=== PATIENT | male | born 1935 | race Caucasian/White ===

== ENCOUNTER → 2019-02-07 | Outpatient (CLI) | payer OTHER ==
[~2019-02-07] VITALS: Ht 188 cm; Wt 98.0 kg
[~2019-02-07] MED LIST: ADVAIR 250-501 EACH IH; ALBUTEROL2.5 MG/0.1 INH; ALLEGRA180 MG PO; ALLOPURINOL 10100 M3 PO; ASPIR 8181 MG PO; ASPIRIN325 PO; CARDIZEM CD240 MG PO; DEMADEX20 MG PO; DICLOFENAC SODI75 MG PO; ELIQUIS5 MG PO; FISH OIL 1,0001 EAC5 PO; GLUCOSAMINE SU500 MG PO; LISINOPRIL5 MG PO; LOVASTAT40 PO; LOVASTATIN 20 M20 MG PO; MULTIVITAMINS PO; POTASSIUM20 PO; PROTONIX40 M2 PO; SIMVASTATIN40 MG PO; SYNTHROID200 MCG PO; TRIAMCINOLONE A80 G2 TOP; VITAMIN D325 MC5 PO
--- NOTE | 2019-02-07 17:09 | P ---
[facility] [place] [address] PROCEDURE REPORT Name: THEODORA RUBIO Room #: REG JACOB Matute.#: [id number] Admission: 02/07/19 Attend Phys: Randell Mane MD Discharge: Date of : 35 Report #: [id number] THIS REPORT FOR: //name// CC: Randell Hsu MD DATE OF SERVICE: 02/07/2019 BRIEF HISTORY: The patient is an 84-year-old male with recent findings of anemia. He also has had epigastric pain, which has been vague. In addition, he uses diclofenac. PREOPERATIVE DIAGNOSES: Anemia and abdominal pain. POSTOPERATIVE DIAGNOSES: 1. Small hiatus hernia. 2. Mid esophageal diverticulum. 3. 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 ESTIMATED BLOOD LOSS: 3 mL. PROCEDURE: EGD with biopsy. FINDINGS: Prior to propofol sedation, procedure of upper endoscopy discussed with the patient as well as potential risks and its complications. He indicates he understands and desires to proceed. DESCRIPTION OF PROCEDURE: With the patient in left lateral decubitus position, the Olympus video endoscope was inserted in the cervical esophagus under direct vision without difficulty. Examination of this organ through its entire length revealed normal esophageal mucosa down in the distal esophagus. Examination of the distal esophagus revealed intact mucosa. However, there was evidence of Reed's mucosa with 3 broad tongues of Reed's mucosa extending 3-4 cm in the distal esophagus. The mucosa was flat. It was examined on end view as well as retroflexed views. No mass lesions were seen. Biopsies were obtained. The scope was further advanced and a small 2 cm sliding type hiatus hernia was seen. The mucosa and hernia was unremarkable. The scope was advanced fully into the stomach, was examined on end view as well as retroflexed views. The mucosa was intact. No ulcers or erosions were seen. The pylorus was unremarkable. Duodenal bulb was unremarkable. Due to history of anemia, multiple small bowel biopsies obtained to evaluate for celiac disease. At that point, the scope was slowly withdrawn and careful circumferential views were obtained. In addition, upon withdrawal of the scope, mid esophageal diverticulum was seen. It was noted to be unremarkable without inflammatory changes. Scope was withdrawn. The patient tolerated the procedure well. [address] [address] PROCEDURE REPORT Name: THEODORA RUBIO Room #: REG JACOB Solorzano#: [id number] Admission: 02/07/19 Attend Phys: Randell Mane MD Discharge: Date of : 35 Report #: [id number] CONDITION OF THE PATIENT UPON DISCHARGE: Following procedure, the patient was drowsy, arousable, conversant and will be discharged home when fully ambulatory. INSTRUCTIONS TO THE PATIENT AND FAMILY AT THE TIME OF DISCHARGE: An ulcer or bleeding lesion was not seen. 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 His symptoms may be related to reflux. We will have him start pantoprazole 20 mg daily. We will follow up on biopsies and make further recommendations. If he does have Reed's, I suggest followup endoscopy and biopsy in 4-6 months. We will proceed with colonoscopy at this time. <ELECTRONICALLY SIGNED> By: Randell Mane MD 02/07/19 1709 [id number] 1055 Randell Mane MD /nt
--- NOTE | 2019-02-07 17:09 | P ---
[facility] [place] [address] PROCEDURE REPORT Name: THEODROA RUBIO [facility]: [id number] Admission: 02/07/19 Attend Phys: Randell Mane MD Discharge: Date of : 35 Report #: [id number] THIS REPORT FOR: //name// CC: Randell Hsu MD DATE OF SERVICE: 02/07/2019 BRIEF HISTORY: The patient is an 84-year-old male recently was found to have microcytic anemia. PREOPERATIVE DIAGNOSIS: Microcytic anemia. POSTOPERATIVE DIAGNOSES: 1. Colon polyps. 2. Moderate sigmoid diverticulosis coli with few scattered proximal colon diverticula. 3. Moderate internal hemorrhoids. MEDICATIONS: Deep sedation with propofol per anesthesia. SPECIMENS: 1. Diminutive polyp, proximal ascending colon. 2. A 4-5 mm flat polyp, 25 cm. ESTIMATED BLOOD LOSS: 3 mL. PROCEDURE: Colonoscopy to cecum and terminal ileum with snare polypectomy and biopsy. FINDINGS: Prior to propofol sedation, procedure of colonoscopy discussed with the patient as well as potential risks and its complications. He indicates he understands and desires to proceed. DESCRIPTION OF PROCEDURE: With the patient in left lateral decubitus position, digital examination was completed, which revealed no abnormalities. Subsequently, the Olympus video colonoscope was introduced and was advanced under direct vision to the cecum. Done with minimal difficulty. The cecum was identified by the ileocecal valve and the appendiceal orifice. I was able to visualize the distal segment of the terminal ileum, which was inspected and noted to be unremarkable. At that point, the scope was slowly withdrawn and careful circumferential views were obtained. Upon slow withdrawal of the scope, the prep was noted to be excellent. The mucosa was within normal limits, normal vascular pattern, normal light reflex. As we withdrew the scope, a diminutive polyp was seen in the proximal ascending colon, removed with biopsy forceps. An [facility] [address] [place] [address] PROCEDURE REPORT Name: THEODORA RUBIO Room #: REG [facility].#: [id number] Admission: 02/07/19 Attend Phys: Randell Mane MD Discharge: Date of : 35 Report #: [id number] occasional diverticulum was seen in the proximal colon, but no other abnormalities were noted until the left colon was reached and he was noted to have moderately severe diverticular disease of the sigmoid colon without endoscopic evidence of diverticulitis. In addition, 25 cm in the sigmoid colon, a flat 4-5 mm polyp was seen and removed by cold snare polypectomy and recovered. Scope was further withdrawn and no additional neoplastic lesions were seen. Scope was withdrawn in the rectum, no abnormalities were noted until upon retroflexion, moderate internal hemorrhoids were seen. Scope was withdrawn. The patient tolerated the procedure well. CONDITION OF THE PATIENT UPON DISCHARGE: Following procedure, the patient drowsy, arousable and conversant and will be discharged home when fully ambulatory. INSTRUCTIONS TO THE PATIENT AND FAMILY AT THE TIME OF DISCHARGE: We will follow up on the pathology of the polyps. However, if these are both adenomas, typical recommendation is return in 5 years. At this point in life, there is likely be of limited benefit from routine colonoscopy in 5 years. However, some problems should arise, colonoscopy could be undertaken for those reasons at that time. Routine followup colonoscopy at this point is likely be of minimal benefit. This is the patient's first colonoscopy. Withdrawal time from the cecum was 15 minutes 8 seconds. <ELECTRONICALLY SIGNED> By: Randell Mane MD 02/07/19 1709 1013 1123 Randell Mane MD /nt
--- NOTE | 2019-02-08 12:08 | PATH ---
[facility] [place] [address] [address] [place] [address] PATHOLOGY RPT PROCEDURE Name: QUINCY RUBIO Room #: REG JACOB Matute.#: [id number] Admission: 02/07/19 Date of : 35 Discharge: Report #: [id number] Path Case #: [id number] [facility] Accession Number: [id number] . 01 Material submitted: . PART A: small bowel - BIOPSY OF SMALL BOWEL TO R/O CELIAC IN REGARDS TO ANEMIA PART B: stomach - GASTRIC BIOPSY TO R/O H. PYLORI PART C: esophagus - BIOPSY OF DISTAL ESOPHAGUS TO R/O MERCEDES. Modifiers: distal PART D: colon - POLYP AT PROXIMAL ASCENDING COLON. Modifiers: proximal, ascending PART E: colon - POLYP AT 25CM . 01 Clinical history: . . Anemia and abdominal pain Hiatus hernia, mid esophageal diverticulum, possible Mercedes's, colon polyps, diverticulosis, hemorrhoids A. Rule out celiac in regards to anemia B. Rule out H. pylori C. Rule out Mercedes's . 02 Diagnosis: A. Small bowel, biopsy: - No pathologic diagnosis. - Normal villous architecture. . B. Stomach, biopsy: - Chronic superficial gastritis, mild. - No evidence of Helicobacter pylori on immunoperoxidase stain. . C. Esophagus, distal, biopsy: - Squamocolumnar epithelium with intestinal metaplasia, findings compatible with Mercedes's esophagus. - Moderate chronic inflammation. - No evidence of dysplasia. . D. Colon, proximal ascending, biopsy: - Adenomatous polyp. . E. Colon, 25 cm, biopsy: - Adenomatous polyp. . (SKM:mml; 02/08/2019) [facility] 02/08/2019 0931 Local . [address] [address] PATHOLOGY RPT PROCEDURE Name: QUINCY RUBIO [facility] Room #: REG [facility].#: [id number] Admission: 02/07/19 Date of : 35 Discharge: Report #: [id number] Path Case #: [id number] Electronically signed: . Brown Cavanaugh MD, Pathologist NPI- [id number] . 01 Gross description: . A. The specimen is received in formalin, labeled "Qunicy Rubio BX of small bowel" and consists of multiple fragments of moreno tissue measuring 1.2 x 0.6 x 0.3 cm in aggregate which are entirely submitted in A1. . B. The specimen is received in formalin, labeled "Vermilion, Quincy, gastric BX" and consists of multiple fragments of pink-moreno tissue measuring 1.5 x 0.5 x 0.2 cm in aggregate which are entirely submitted in B1. . C. The specimen is received in formalin, labeled "Vermilion, Quincy, BX of distal esophagus" and consists of multiple fragments of pink-moreno tissue measuring 1.2 x 0.7 x 0.2 cm in aggregate which are entirely submitted in C1. . D. The specimen is received in formalin, labeled "Vermilion, Quincy, polyp at proximal ascending colon" and consists of 2 fragments of pink-moreno tissue measuring 0.2 x 0.2 cm and 0.3 x 0.2 cm which are entirely submitted in D1. . E. The specimen is received in formalin, labeled "Vermilion, Quincy, polyp at 25 cm" and consists of a segment of pink-moreno tissue measuring 1.0 x 0.5 x 0.1 cm which is entirely submitted in E1. (SDY; 02/07/2019) SYU/SYU 02/07/2019 1606 [facility] . 02 Pathologist provided ICD-10: K29.30, K20.9, D12.2, D12.6 . 02 CPT . 483089, 358381, 945027, 810167, 432020, I18585 Specimen Comment: A courtesy copy of this report has been sent to [phone] Specimen Comment: Report sent to Performed at: 01 [facility] [address] [place] [address] [address], [place], [place] [id number] MD Bernard Resendiz MD Phone: [phone] Performed at: [address] [id number] MD Isadora Neely MD Phone: [phone]
== END | disposition home or self-care (01) ==
LOC: GI 08:25
DX: D50.8 Other iron deficiency anemias (principal); R10.9 Unspecified abdominal pain; K57.30 Diverticulosis of large intestine without perforation or abscess without bleeding; K64.8 Other hemorrhoids; K44.9 Diaphragmatic hernia without obstruction or gangrene; K29.50 Unspecified chronic gastritis without bleeding; K20.8 Other esophagitis; D12.2 Benign neoplasm of ascending colon; E78.5 Hyperlipidemia, unspecified; I50.9 Heart failure, unspecified; I48.91 Unspecified atrial fibrillation; Z95.1 Presence of aortocoronary bypass graft; Z90.49 Acquired absence of other specified parts of digestive tract; Z98.890 Other specified postprocedural states
CPT/HCPCS: 62110; 62900

== ENCOUNTER → 2019-07-05 | Outpatient (CLI) | payer OTHER | LOC: SJCVC 15:26 | PROVIDERS: ATTEND Internal Medicine | DX: I44.7 Left bundle-branch block, unspecified (principal); I48.21 Permanent atrial fibrillation; R94.31 Abnormal electrocardiogram [ECG] [EKG]; I11.0 Hypertensive heart disease with heart failure; I50.32 Chronic diastolic (congestive) heart failure; E78.5 Hyperlipidemia, unspecified; I65.23 Occlusion and stenosis of bilateral carotid arteries; M19.90 Unspecified osteoarthritis, unspecified site; I25.810 Atherosclerosis of coronary artery bypass graft(s) without angina pectoris; Z95.1 Presence of aortocoronary bypass graft; Z79.899 Other long term (current) drug therapy ==

== ENCOUNTER → 2020-01-09 | Outpatient (CLI) | payer OTHER | LOC: SJCVCIMAG 08:15 | PROVIDERS: ATTEND Internal Medicine | DX: I08.8 Other rheumatic multiple valve diseases (principal); I65.23 Occlusion and stenosis of bilateral carotid arteries; R94.31 Abnormal electrocardiogram [ECG] [EKG]; I45.4 Nonspecific intraventricular block; I48.21 Permanent atrial fibrillation; I25.10 Atherosclerotic heart disease of native coronary artery without angina pectoris; I11.0 Hypertensive heart disease with heart failure; I50.22 Chronic systolic (congestive) heart failure; E78.5 Hyperlipidemia, unspecified; I44.7 Left bundle-branch block, unspecified; Z95.1 Presence of aortocoronary bypass graft; Z79.899 Other long term (current) drug therapy ==

== ENCOUNTER → 2020-04-09 | Outpatient (CLI) | payer OTHER | LOC: SJCVCIMAG 09:27 | PROVIDERS: ATTEND Internal Medicine | DX: R94.31 Abnormal electrocardiogram [ECG] [EKG] (principal); I08.8 Other rheumatic multiple valve diseases; I48.21 Permanent atrial fibrillation; I44.7 Left bundle-branch block, unspecified; I25.10 Atherosclerotic heart disease of native coronary artery without angina pectoris; I11.0 Hypertensive heart disease with heart failure; I50.32 Chronic diastolic (congestive) heart failure; E78.5 Hyperlipidemia, unspecified; I65.23 Occlusion and stenosis of bilateral carotid arteries; I25.5 Ischemic cardiomyopathy; E78.00 Pure hypercholesterolemia, unspecified; R53.83 Other fatigue; M19.90 Unspecified osteoarthritis, unspecified site; N40.0 Benign prostatic hyperplasia without lower urinary tract symptoms; Z72.89 Other problems related to lifestyle; Z79.899 Other long term (current) drug therapy; Z95.1 Presence of aortocoronary bypass graft; Z88.8 Allergy status to other drugs, medicaments and biological substances; Z88.6 Allergy status to analgesic agent ==

== ENCOUNTER → 2020-04-18 | Outpatient (CLI) | payer OTHER | LOC: LAB 11:37 | PROVIDERS: ATTEND Internal Medicine Cardiovascular Disease | DX: Z01.812 Encounter for preprocedural laboratory examination (principal); Z20.822 Contact with and (suspected) exposure to COVID-19 ==

== ENCOUNTER 2020-04-23 06:41 | Observation (INO) | payer OTHER ==
[~2020-04-23] VITALS: Ht 188 cm; Wt 89.8 kg
--- NOTE | ~2020-04-23 | P ---
[facility] [place] [address] PROCEDURE REPORT Name: THEODORA RUBIO Room #: 215-P [facility] M.R.#: [id number] Admission: 04/23/20 Attend Phys: Merrill Jauregui MD Discharge: Date of : 35 Report #: [id number] THIS REPORT FOR: cc: Brown Hsu MD, Steven E. MD ~ DATE OF SERVICE: 04/23/2020 PREOPERATIVE DIAGNOSES: 1. Ischemic cardiomyopathy. 2. Chronic LV systolic heart failure. 3. Left bundle branch block. 4. [place] Heart Association functional class 3 heart failure. 5. Permanent atrial fibrillation. HISTORY: The patient is an 85-year-old male with a history of coronary artery disease, status post MA with a resultant ischemic cardiomyopathy with chronic LV systolic heart failure, EF of less than 35% and left bundle-branch block with [place] Heart Association functional class 3 heart failure. He has been on optimal medical therapy in the form of beta sofya and HEATHER inhibitor. Medications, he is here for BiV ICD implantation. ANESTHESIA: The patient underwent MAC anesthesia with no anesthesia related complications. DESCRIPTION OF PROCEDURE: The patient underwent informed consent. We discussed the details of the procedure including the risks, which include but not limited to bleeding, infection, vascular damage, cardiac perforation and pneumothorax. He understood these risks and is willing to proceed. The patient was brought to the EP laboratory in a fasting nonsedated state and prepped and draped in a sterile fashion. He underwent a venogram showing patency of the left axillary vein and received IV antibiotics prior to initiation of the procedure. Next, lidocaine was injected below level of the left clavicle. Incision was made and pocket was created over the prepectoral fascia. Access was obtained twice in the left axillary vein using the extrathoracic approach. Initially had some difficulties getting my wires to advance into the heart, but by placing a short sheath this obstacle was overcome. Next, a RV lead was positioned in the right ventricular apex with adequate pacing and sensing thresholds and sutured to the prepectoral fascia using Ethibond. Next, a coronary guide sheath was placed into the right atrium and quickly got into the coronary sinus. A formal venogram using a balloon was performed and showed that he had a middle cardiac vein and anterior lateral branch, but no posterolateral branches. Next, I [facility] [address] [place] [address] PROCEDURE REPORT Name: THEODORA RUBIO Room #: 215-P [facility] Ana Solorzano#: [id number] Admission: 04/23/20 Attend Phys: Merrill Jauregui MD Discharge: Date of : 35 Report #: [id number] attempted to position the lead into this anterolateral branch just using guidewires and the lead, but I did not have enough support. Therefore, I placed a UBEnX.comtronic inner 90-degree sheath and this gave me more stability and then I was able to get the lead deep into this large anterior lateral branch. Thresholds were good and there was no phrenic nerve stimulation in any pacing configuration. Both sheaths were split. The lead was sutured to the prepectoral fascia. Device was connected and atrial plug was placed in the atrial port of the device as the patient has permanent atrial fibrillation. The pocket was irrigated with vancomycin and the pocket was closed in 2 layers using 2-0 for the deep layer, 3-0 for the middle layer and surgical glue was placed throughout the skin layer. The patient awoke neurologically and hemodynamically intact. No complications and no significant bleeding. The device and leads were all Medtronic. The defibrillator was a model UTEU3EJ, serial number [id number], RV lead was a 6935, 62 cm, serial number [id number]. LV lead was a model # 4598, 88 cm, serial number [id number]. RV lead demonstrated R waves of 11.5 millivolts, pacing impedance 436 ohms, pacing threshold 0.4 volts at 0.5 milliseconds. The LV lead had multiple good thresholds, but final programming was from the LV3 to LV4 pacing configuration as this was the most basal pacing location. This threshold was 1.25 volts at 0.4 milliseconds with a normal impedance. The LV lead was programmed to pace 30 milliseconds prior to the RV lead, which resulted in the QRS narrowing from 160 milliseconds down to 101 milliseconds. The device was programmed to the VVIR 60-130 mode. The VT zone was set at 180-220 beats per minute with 3 rounds of burst followed by 3 rounds of ramp followed by max output shocks. The VF zone was set at greater than 220 beats per minute with ATP while charging followed by max output shocks. CONCLUSION: 1. Successful BiV ICD implantation. 2. Satisfactory right ventricular and left ventricular pacing and sensing thresholds. By: 1111 1230 /nt
[2020-04-23 07:38] LABS: ABSOLUTE NEUTROPHILS 4.5 thou/uL (1.4-8.2); BASOPHILS 1.2 % (0.0-2.0); EOSINOPHILS 9.7 % (0.0-3.0); HEMOGLOBIN 15.3 gm/dL (14.0-18.0); LYMPHOCYTES 16.9 % (24.0-44.0); MCH 30.8 pg (26.0-34.0); MCHC 32.5 g/dL (28.0-37.0); MCV 94.9 fL (80.0-100.0); MONOCYTES 8.9 % (1.0-8.0); PLATELET COUNT 215 thou/uL (150-400); POLYS 63.3 % (36.0-66.0); RBC 4.95 mil/uL (4.50-6.00); RDW 14.9 % (10.5-14.5); WBC 7.1 thou/uL (4.0-11.0)
[2020-04-23 07:45] VITALS: BP 130/82
[2020-04-23 07:45] LABS: CALCIUM 9.7 mg/dL (8.5-10.1); CREATININE 1.3 mg/dL (0.7-1.3); POTASSIUM 4.3 mmol/L (3.5-5.1)
[2020-04-23 07:47] LABS: APTT 26.8 Seconds (24.5-32.8); PROTIME 10.9 Seconds (9.3-11.4)
[2020-04-23 07:50] LABS: ALBUMIN 4.2 g/dL (3.4-5.0); TOTAL PROTEIN 7.6 g/dL (6.4-8.2)
[2020-04-23] MEDS ORDERED: CARVEDILOL3.125 MG PO (08:06)
[2020-04-23] MEDS ORDERED: LISINOPRIL10 MG PO (08:07)
[2020-04-23 11:30] VITALS: BP 150/87
--- NOTE | 2020-04-23 12:00 | NUR ---
PT ARRIVED UNIT APPROX 1130. PT ALERT ORIENTED VSS. C/O SORENESS INCISION AREA. DENIES NEEDS FOR PAIN MEDS AT THIS TIME. IMMOBILIZER IN PLACE, BR ORDERED. ADMISSION COMPLETE. TELE STRIP PRINTED DOCUMENTED. PLAN FOR XRAY IN AM POSSIBLE DC TOMORROW. CONTINUING POC.
[2020-04-23] MEDS ORDERED: ELIQUIS5 MG PO (12:29)
[2020-04-23 15:45] VITALS: BP 135/83
[2020-04-23 19:45] VITALS: BP 105/62
[2020-04-24 00:45] VITALS: BP 118/74
[2020-04-24 06:30] VITALS: BP 116/73
[2020-04-24 07:50] VITALS: BP 115/75
[2020-04-24 08:10] VITALS: BP 130/83
[2020-04-24] MEDS ORDERED: ASPIR-TRIN325 MG PO (08:41)
[2020-04-24 09:56] VITALS: BP 116/73
--- NOTE | 2020-04-24 09:59 | NUR ---
85 year old male who presented to the hospital on 04-23-20 for a planned BiV ICD placement with Dr. Jauregui. He was monitored in CCU overnight, receiving IV abx. Follow-up has been arranged for a 1 week and 3 month site and device check. Patient lists his daughter Jonatan Alvarado as his next of kin at [phone]. Patient to discharge home and no CM needs noted at this time but CM to follow for discharge assistance if so consulted.
--- NOTE | 2020-04-24 11:05 | NUR ---
DISCHARGING TO HOME, CXR OK. SALINE LOCKS, TELEMETRY DISCONTINUED. TELE BOX SECURED. DISCHARGE INSTRUCTIONS, PRINTED AND ORAL, GIVEN.
== END 2020-04-24 11:22 | disposition home or self-care (01) ==
LOC: CATH 06:41 → 2N 11:33 → CATH 12:24 → 2N 04-24 11:22
PROVIDERS: ADMIT Internal Medicine Cardiovascular Disease; ATTEND Internal Medicine Cardiovascular Disease
DX: I25.5 Ischemic cardiomyopathy (principal); I11.0 Hypertensive heart disease with heart failure; I50.22 Chronic systolic (congestive) heart failure; I44.7 Left bundle-branch block, unspecified; I25.10 Atherosclerotic heart disease of native coronary artery without angina pectoris; I48.21 Permanent atrial fibrillation; E78.5 Hyperlipidemia, unspecified; Z79.899 Other long term (current) drug therapy; Z88.8 Allergy status to other drugs, medicaments and biological substances

== ENCOUNTER 2020-07-04 16:28 | Inpatient (IN) | payer OTHER ==
[~2020-07-04] VITALS: Ht 190.5 cm; Wt 89.8 kg
[2020-07-04 16:28] VITALS: BP 167/101
[~2020-07-04 16:28] MED LIST changes: +ASPIR-TRIN325 MG PO; +CARVEDILOL3.125 MG PO; +LISINOPRIL10 MG PO
--- NOTE | 2020-07-04 16:57 | NUR ---
THIS VISITOR WAS WALKING IN THE OR HOSPITAL HALLWAY WITH HIS CANE WHEN HE TRIPPED AND FELL. CATERING TRUCK DRIVER WAS CALLED- SEE FLOWSHEET. PT BROUGHT TO ER FOR FURTHER EVALUATION BY PROVIDER.
[2020-07-04 19:50] LABS: ABSOLUTE NEUTROPHILS 7.3 thou/uL (1.4-8.2); BASOPHILS 0.7 % (0.0-2.0); EOSINOPHILS 6.4 % (0.0-3.0); HEMATOCRIT 38.9 % (42.0-52.0); HEMOGLOBIN 12.9 gm/dL (14.0-18.0); LYMPHOCYTES 6.7 % (24.0-44.0); MCH 32.1 pg (26.0-34.0); MCHC 33.2 g/dL (28.0-37.0); MCV 96.6 fL (80.0-100.0); MONOCYTES 6.9 % (1.0-8.0); PLATELET COUNT 197 thou/uL (150-400); POLYS 79.3 % (36.0-66.0); RBC 4.03 mil/uL (4.50-6.00); RDW 13.7 % (10.5-14.5); WBC 9.2 thou/uL (4.0-11.0)
[2020-07-04 19:59] LABS: CREATININE 0.8 mg/dL (0.7-1.3); POTASSIUM 5.1 mmol/L (3.5-5.1)
[2020-07-04 20:38] VITALS: BP 137/86
[2020-07-04 21:02] VITALS: BP 115/92
[2020-07-04 21:30] VITALS: BP 134/87
--- NOTE | 2020-07-04 23:54 | NUR ---
ADMITTED TO THE UNIT AT APPROXIMATELY 2110. PT IS ON ROOM AIR AND IS ON BEDREST. C/O SEVERE PAIN TO RIGHT HIP. PRN PAIN MEDICATION GIVEN DIRECTED. DAUGHTER BROUGHT MEDICATIONS TO VERIFY CORRECT DOSAGES WITH STAFF. TOOK BACK HOME WITH HER. ADMISSION IS COMPLETE. PT EDUCATED RAIL BENDER LIGHT. FALL PRECAUTIONS IN PLACE, CALL LIGHT IS WITHIN REACH. WILL CONTINUE TO MONITOR.
[2020-07-05 05:36] LABS: HEMATOCRIT 33.7 % (42.0-52.0); MCH 31.9 pg (26.0-34.0); MCHC 32.7 g/dL (28.0-37.0); MCV 97.5 fL (80.0-100.0); RBC 3.45 mil/uL (4.50-6.00); RDW 13.8 % (10.5-14.5); WBC 7.4 thou/uL (4.0-11.0)
[2020-07-05 05:44] LABS: CREATININE 0.9 mg/dL (0.7-1.3); MAGNESIUM 2.1 mg/dL (1.8-2.4); PHOSPHORUS 3.6 mg/dL (2.5-4.9); POTASSIUM 4.2 mmol/L (3.5-5.1)
--- NOTE | 2020-07-05 06:55 | EKG ---
[address] [place] [address] ELECTROCARDIOGRAM REPORT Name: THEODORA RUBIO Room #: 447-P ADM IN M.R.#: [id number] Admission: 07/04/20 Attend Phys: Dony Perez MD Discharge: Date of : 35 Report #: [id number] [facility] ED Test Date: 2020-07-04 Test Time: 19:46:51 Pat Name: THEODORA RUBIO Department: Room: 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: NAIMA : 1935 Requested By: Jose Donald Order Number: [id number] MD: Neymar Malcolm Measurements Intervals [place] Rate: 71 P: SC: QRS: -34 QRSD: 141 T: 138 QT: 444 QTc: 483 Interpretive Statements Afib/flut and V-paced complexes No further analysis attempted due to paced rhythm Compared to ECG 12/07/2009 12:14:48 Sinus rhythm no longer present Left bundle-branch block no longer present Electronically Signed On 07-05-2020 6:55:30 CDT by Neymar Malcolm [email or web address] <ELECTRONICALLY SIGNED> By: Neymar Malcolm MD, [facility] 07/05/20 0655 45 45 Neymar Malcolm MD, [facility] /EPI
[2020-07-05 07:14] VITALS: BP 98/66
[2020-07-05 10:00] VITALS: BP 120/84
--- NOTE | 2020-07-05 10:14 | NUR ---
Assumed care of pt at 0700. Pt c/o right hip. Prn pain meds administered. IVF infusing. Pt taken for surgery. Family aware. Fall precautions in place.
[2020-07-05 15:00] VITALS: BP 122/68
--- NOTE | 2020-07-05 16:24 | NUR ---
ASSESSMENT: CM REVIEWED CHART AND SPOKE WITH PATIENT AND HIS DAUGHTER MORRO AT THE BEDSIDE. PT IS ALERT AND ORIENTED X4. PT WAS ADMITTED AFTER A FALL WHILE VISITING HIS HERE AT [facility] AND HAD HIP FX. PT HAD SURGERY TODAY. PT/OT EVALS PENDING BUT PT WILL LIKELY NEED SNF. PT REPORTS THAT HE AND HIS WHO IS ALSO A PATIENT HERE AT THIS TIME USUALLY LIVE AT HOME IN A HOUSE. HE REPORTS HAVING ABOUT 2 STEPS TO ENTER THE HOME AND ALL NEEDS ARE ON THE MAIN LEVEL. PT REPORTS HAVING A GRAB BAR, SHOUWER CHAIR IN THE BATHROOM. PT STATES THAT HE USES A CANE. PT HAD HH IN THE PAST AND THINKS IT WAS [facility]. PT REPORTS HE HAS ALSO BEEN TO SNF [facility] AND DID NOT LIKE EITHER. CM DISCUSSED PT WILL LIKELY NEED POST ACUTE CARE AT DISCHARGE AND HE REPORTS HE IS HOPING HE WILL BE ABLE TO GO TO THE SAME FACILITY HIS WHO IS ON 4W. DAUGHTER REPORTS HAS MEMORY ISSUES BUT LOOKING FOR A SNF TOGETHER. CM PROVIDED IN NETWORK SNF LIST TO PATIENT AND DAUGHTER. THEY [facility] CM FAXED REFERRAL AND NOTIFIED NATALIIA FERRARO OF THE SITUATION. PT HAS BEEN VACCINATED FOR COVID BUT STATES HIS HAS NOT. CM DISCUSSED GIVEN POLICIES AT CERTAIN SNF MAIN HAVE TO REMAIN IN [place] FOR 14DAYS PENDING ON FACILITY DUE TO BEING UNVACCINATED. CM WILL CONTINUE TO FOLLOW TO ASSIST NEEDED.
[2020-07-05 18:07] VITALS: BP 120/63
[2020-07-05 21:29] VITALS: BP 94/60
--- NOTE | 2020-07-06 03:25 | NUR ---
PT IS A/O X4 AND IS UP WITH ASSISTANCE TOLERATED. ROOM AIR. MS NO TELE. DRSG TO RIGHT HIP IS C/D/I. ABDUCTER PILLOW IN PLACE, CHINTAN HOSE, AND SCD'S IN PLACE. USES A URINAL WITH ASSISTANCE. NO BM THIS SHIFT. PT STATES HE IS FEELING MUCH BETTER POST SURGERY. C/O PAIN. PRN PAIN MEDICATION GIVEN DIRECTED. BP LOW THIS EVENING. WILL RECHECK. PT IS PROGRESSING TOWARDS PLAN OF CARE DC GOALS. FALL PRECAUTIONS IN PLACE, CALL LIGHT IS WITHIN REACH. WILL CONTINUE TO MONITOR.
[2020-07-06 05:55] LABS: HEMATOCRIT 29.5 % (42.0-52.0); HEMOGLOBIN 9.7 gm/dL (14.0-18.0); MCH 32.1 pg (26.0-34.0); MCHC 32.8 g/dL (28.0-37.0); MCV 97.9 fL (80.0-100.0); RBC 3.02 mil/uL (4.50-6.00); RDW 13.9 % (10.5-14.5); WBC 10.1 thou/uL (4.0-11.0)
[2020-07-06 07:55] VITALS: BP 122/77
--- NOTE | 2020-07-06 11:59 | NUR ---
Assumed care of pt at 0700. Pt a&ox4. Pain controlled with prn pain meds. Dressing c/d/i. Up to the chair with physical therapy. IVF infusing. Family at bedside. Fall precautions in place. Will continue to monitor.
--- NOTE | 2020-07-06 13:52 | NUR ---
ON-GOING ASSESSMENT: CM REVIEWED CHART AND SPOKE WITH PATIENT AND HIS DAUGHTER. PT IS AGREEABLE FOR SNF AND LIASON FROM [facility] STATING SHE CAN ACCEPT PATIENT PENDING INSURANCE AUTH. SHE STATES THEY HAVE ALSO APPROVED HIS CLINICALLY TO ACCEPT PENDING HER AUTH WHEN SHE IS STABLE BUT HE WILL BE ABLE TO VISIT WITH HER WHILE THERE. WILBERTO FAXED UPDATED CLINICAL TO JASMINE AT [facility] WHO HAS STARTED TO THE INSURANCE AUTH PROCESS. JASMINE WILLIAM AT [facility] HAS ALSO SPOKEN WITH PATIENTS DAUGHTER. ADMISSIONS AT [facility] WILL CONTACT THE NURSING UNIT (WILBERTO PROVIDED JASMINE WITH NUMBER) OVER THE WEEKEND IF INSURANCE AUTH IS OBTAINED. YOU CAN ALSO CALL THE ADMISSIONS PHONE AT [phone] FOR AN UPDATE. IF THEY HAVE AUTH AND CAN ACCEPT OVER THE WEEKEND ADMISSIONS AT [facility] WILL FACILITATE DISCHARGE. PT WILL NEED TO BE SENT WITH A CHART COPY. CM WILL CONTINUE TO FOLLOW TO ASSIST NEEDED. POSSIBLE WEEKEND DISCHARGE PENDING INSURANCE AUTH FOR [facility]. FAX FOR [facility]: [phone] [facility] REPORT: [phone]
[2020-07-06 16:00] VITALS: BP 94/58
[2020-07-06 19:38] VITALS: BP 93/56
--- NOTE | 2020-07-07 03:22 | NUR ---
PT IS A/O X4 AND IS UP WITH ASSISTANCE. C/O PAIN TO RIGHT HIP. PRN PAIN MEDICATION GIVEN DIRECTED. BED MS ACCESS DATABASE DEVELOPER APPLIED TO BE FOR COMFORT. C/O CONSTIPATION. SCHEDULED STOOL SOFTNERS GIVEN DIRECTED. FALL PRECAUTIONS IN PLACE, CALL LIGHT IS WITHIN REACH. PT IS PROGRESSING TOWARDS PLAN OF CARE DC GOALS. FALL PRECAUTIONS IN PLACE, CALL LIGHT IS WITHIN REACH.
[2020-07-07 05:04] LABS: HEMATOCRIT 26.8 % (42.0-52.0); HEMOGLOBIN 9.1 gm/dL (14.0-18.0); MCH 32.9 pg (26.0-34.0); MCV 96.8 fL (80.0-100.0); RBC 2.77 mil/uL (4.50-6.00); RDW 13.9 % (10.5-14.5); WBC 7.5 thou/uL (4.0-11.0)
[2020-07-07 05:34] VITALS: BP 94/57
[2020-07-07 07:45] VITALS: BP 103/62
[2020-07-07 16:05] VITALS: BP 100/62
[2020-07-07 19:30] VITALS: BP 92/55
--- NOTE | 2020-07-08 03:32 | NUR ---
RECEIVED CARE OF THIS PATIENT AT 1900. PATIENT ALERT AND ORIENTED X4. IS ANXIOUS ABOUT . WORRIED ABOUT HER MEDS AND HOW SHE IS DOING. HAS DRESSING ON R HIP, D/I. C/O PAIN, MED GIVEN. SLEPT MOST OF NIGHT.
[2020-07-08 04:38] VITALS: BP 114/64
[2020-07-08 05:34] LABS: HEMATOCRIT 28.6 % (42.0-52.0); HEMOGLOBIN 9.5 gm/dL (14.0-18.0); MCH 32.2 pg (26.0-34.0); MCHC 33.1 g/dL (28.0-37.0); MCV 97.2 fL (80.0-100.0); RBC 2.94 mil/uL (4.50-6.00); RDW 13.8 % (10.5-14.5); WBC 8.9 thou/uL (4.0-11.0)
[2020-07-08 09:30] VITALS: BP 101/63
[2020-07-08 15:08] VITALS: BP 111/72
--- NOTE | 2020-07-08 16:32 | NUR ---
PT ASSESSED AT START OF SHIFT. PT VERY DROWSY THIS AM AND MUCH OF DAY. BP LOW BUT UNCHANGED FROM PREVIOUS DAYS. PAGED DR. TOBIAS TO SEE IF NEEDS SOME FLUID BOLUS. AWAITING CALL BACK. EATING AND DRINKING. PAIN CONTROLED W/ PAIN MED. DAUGHTER IN TO VISIT.
[2020-07-08 18:06] VITALS: BP 111/72
[2020-07-08 20:45] VITALS: BP 120/71
--- NOTE | 2020-07-09 02:55 | NUR ---
PT IS A/O X4 WITH SOME FORGETFULLNESS THIS NOC. GETS UP WITH ASSISTANCE X2 USING WALKER AND GB. RECEIVED PT SITTING UP IN RECLINER ALERT AND APPEARED TO BE WATCHING TV. UPON TALKING WITH PT HE STATES HIS CONCERNS OF HIS AND THEIR UPCOMING MOVE TO A FACILITY. DRSG TO HIP IS C/D/I WITH DRIED DRAINAGE UNDER THE TRANSPARENT DRESSING. C/O PAIN TO RIGHT HIP. SCHEDULED PAIN MEDICATION GIVEN DIRECTED. VSS. AFEBRILE. BP WNL THIS SHIFT AND HIGHER FROM PREVIOUS SHIFT. DID NOT RECEIVE CALL BACK FROM PHYSCIAN THAT DAY SHIFT STATED THEY HAD MADE PRIOR TO END OF SHIFT. FALL PRECAUTIONS IN PLACE, CALL LIGHT IS WITHIN REACH. WILL CONTINUE TO MONITOR.
[2020-07-09 08:06] VITALS: BP 122/61
[2020-07-09 15:27] VITALS: BP 109/68
--- NOTE | 2020-07-09 19:34 | NUR ---
Assumed pt care at 7am.Pt in bed resting and watching tv.Assessment completed vss.Am meds given with breakfast and well tolerated.Pt up to bathroom with assist and has bm x2 today.Dr Reyes here,order noted.Dtr here to visit wanted to talk to the doctor but left before dr's arrival.Assisted pt with tray setup at all meals,poor appetite noted.Pt refused abductor pillow while in bed. Fall bundle in place.Pain meds given twice this shift with partial relief. Report off to beth rn.
[2020-07-09 20:00] VITALS: BP 150/79
[2020-07-09 20:38] VITALS: BP 103/64
--- NOTE | 2020-07-10 03:41 | NUR ---
PT IS ALERT AND ORIENTED X4 LUNGS ARE CLEAR. UP TO BATHROOM WITH WALKER RIGHT KNEE IS SWOLLEN PAIN MEDS GIVEN NEEDED FOR PT. RESTING AFTER MEDS GIVEN. LUNGS ARE CLEAR. HAS URINAL AT BEDSDIDE BUT PREFERS GOING TO BATHROOM. ABDOMEN IS SOFT . BOWEL SOUNDS ACTIVE X4. CALL LIGHT WITHIN REACH IF NEEDS ASSSISTANCE FROM NURSING STAFF
[2020-07-10 05:10] VITALS: BP 115/69
[2020-07-10 07:30] VITALS: BP 100/65
--- NOTE | 2020-07-10 09:26 | NUR ---
Assumed care of pt at 0700. Hydro Plant Operator a&ox4 but forgetful at times. Dressing c/d/i. Ambulated in the kincaid with walker and gait-belt. Pain controlled with prn pain meds. Waiting on ins auth for SNF. Call light within reach. Fall precautions in place. Will continue to monitor.
[2020-07-10] MEDS ORDERED: HYDROCODON-ACE1 EAC7 PO (09:41)
--- NOTE | 2020-07-10 14:44 | NUR ---
ON-GOING ASSESSMENT: CM REVIEWED CHART AND SPOKE WITH ATTENDING. INSURANCE AUTH IS STILL PENDING WITH [facility]. CM UPDATED NATALIIA FERRARO AND ALSO FAXED UPDATED CLINICAL. AWAITING INSURANCE AUTH AT THIS TIME FOR [facility]. CM NOTIFIED PATIENTS DAUGHTER MORRO WHO IS AT THE BEDSIDE. REPORT FOR [facility]: [phone] FAX:[phone]
[2020-07-10 15:55] VITALS: BP 117/77
[2020-07-10 20:25] VITALS: BP 140/74
--- NOTE | 2020-07-11 00:45 | NUR ---
ASSUMED PT CARE AT 1900.PT STATED THAT HE WANTED TO GO TO TOILET.PT WAS HELPED UP WITH GB/WALKER,JOANIE WELL.DRSG TO R HIP SATURATED WITH DRY BLOOD.ICE PACK TO R HIP.PT LOOKING FORWARD TO BE DC'D LATER TODAY.CALL LIGHT WITHIN REACH.
[2020-07-11 05:20] VITALS: BP 123/75
[2020-07-11] MEDS ORDERED: ELIQUIS5 MG PO (08:47)
[2020-07-11] MEDS ORDERED: COLACE100 MG PO (08:48)
[2020-07-11] MEDS ORDERED: MIRALAX17 GM PO (08:49)
--- NOTE | 2020-07-11 09:28 | NUR ---
ON-GOING ASSESSMENT: WILBERTO SPOKE WITH JASMINE AT [facility] WHO REPORTS THEY HAVE INSURANCE AUTH TO ACCEPT PT TODAY AND PLANS TO [facility] MACHINE FEEDER PATIENT AT 1100. CM NOTIFIED PT WHO IS AGREEABLE WITH PLAN AND HE CALLED HIS DAUGHTER MORRO AND SPOKE WITH HER TO NOTIFY HER. CM ALSO LEFT HER A VM. CHART COPY WAS ORDERED AND DISCHARGE PAPERWORK INCLUDED. CM FAXED DISCHARGE PAPERWORK TO [facility] [place] AND CONFIRMED THEY RECEIVED IT AND HIS NEGATIVE COVID TEST. CM NOTIFIED BEDSIDE RN TIME OF TRANSPORTATION AND BEDSIDE RN HAS THE NUMBER FOR REPORT. CM ALSO NOTIFIED PT THAT HIS HAS BEEN APPROVED AND WILL ALSO TRANSFER TO [facility] TODAY. PT REPORTS NO FURTHER NEEDS FROM . CASE CLOSED.
--- NOTE | 2020-07-11 09:43 | NUR ---
Assumed care of pt at 0700. Pt a&ox4. Pain controlled with prn pain meds. Good appetite. Dressing intact. Pt will discharge to SNF at 11. Will call facility and give report. Call light within reach. Fall precautions in place. Will continue to monitor.
--- NOTE | 2020-07-16 09:58 | O ---
[facility] [place] [address] OPERATIVE REPORT Name: THEODORA RUBIO Room #: 447-P [facility] IN M.R.#: [id number] Admission: 07/04/20 Attend Phys: Dony Perez MD Discharge: 07/11/20 Date of : 35 Report #: [id number] THIS REPORT FOR: cc: Brown Hsu MD, Steven E. MD Abraham,Familia Mayers MD ~ DOC #: [id number] Familia Schuster MD DATE OF SERVICE: 07/05/2020 PREOPERATIVE DIAGNOSIS: Right periprosthetic total hip arthroplasty fracture. POSTOPERATIVE DIAGNOSIS: Right periprosthetic total hip arthroplasty fracture. OPERATIVE PROCEDURE PERFORMED: 1. Revision right total hip arthroplasty stem only. 2. Open reduction and internal fixation proximal femur with trochanteric rock crushing machine operator plate. SURGEON: Familia Schuster MD. REHAB THERAPY MANAGER: Chela Hickey PA-C INDICATION FOR REHAB THERAPY MANAGER: Throughout the case extensive retraction, manipulation of the hip including dislocation and reduction as well as reduction of the fracture was required. This was afforded to me by my assistant athletic trainer. ANESTHESIOLOGIST: LMA. ESTIMATED BLOOD LOSS: 200 mL. IMPLANTS: [employer] size 12 Synergy cemented high offset stem with a 36+12 cobalt chrome head as well as a standard 8 cable accord plate with 5 cerclage cables. ESTIMATED BLOOD LOSS: 200 mL. COMPLICATIONS: None. CONDITION UPON LEAVING OPERATING ROOM: Stable. INDICATIONS FOR PROCEDURE: The patient is an 85-year-old gentleman who fell while at the hospital visiting his . He has a history of a right total hip arthroplasty approximately 2 years ago. He was brought to the Emergency Room and found to have a periprosthetic fracture around his femoral stem. After discussion with him and his daughter, they elected for revision of his stem with [facility] [address] [place] [address] OPERATIVE REPORT Name: THEODORA RUBIO Room #: 447-P [facility] IN M.R.#: [id number] Admission: 07/04/20 Attend Phys: Dony Perez MD Discharge: 07/11/20 Date of : 35 Report #: [id number] fixation of the proximal femur using a trochanteric rock crushing machine operator plate. DESCRIPTION OF PROCEDURE: Risks, benefits, alternatives, complications were discussed in detail with the patient including but not limited to risk of anesthesia, risk of damage to nerves, arteries, blood vessels, risk for infection, bleeding, leg length discrepancy, instability and need for reoperation. Informed consent was obtained from the patient. The right hip was appropriately marked in the preoperative holding area. IV Ancef was given for preoperative antibiotics. He was brought to the operating room and placed in supine position on the operating room table. LMA anesthesia was induced without complication. He was then placed in the left lateral decubitus position with the right hip uppermost. Right hip and lower extremity were then prepped and draped in normal sterile fashion. Timeout was performed properly identifying the patient and procedure as well as the instrumentation and the implants. All in the operating room in agreement. Standard posterior approach to the hip was made with 10 blade through the skin. Dissection was taken down to the fascia with Bovie cautery and Erickson elevator was used to clean off the fascia. A fresh 10 blade was used to make a fascial incision. This was taken proximally and distally with curved Dean scissor. Charnley retractor was placed. Trochanteric bursa was taken down with Bovie cautery. Piriformis tendon was identified, tagged and taken down with Bovie. Short external rotators were also taken down with Bovie cautery. Capsulotomy was made and capsule ends were tagged for later repair. The hip was dislocated with the assistance of a bone hook and the femoral head was removed. A slap hammer was placed on the femoral neck and the femoral stem was easily removed. At this point, the fracture was assessed and was found to be well reduced in situ and so an 8 cable standard accord rock crushing machine operator plate was placed on the greater trochanter down the lateral aspect of the femur and 5 cerclage cables were placed to maintain reduction of the fracture. After this, the femoral canal was prepared and reamed up to a size 12. This was then broached to a size 12 and trialed with a high offset neck and a 36+0 head. Hip was reduced, taken through range of motion, found to be stable, found to be somewhat short on the right compared to left and it was felt we can make up for this the final implant. Hip was dislocated and a final size 12 high offset Synergy cemented stem was cemented in place using standard cementation techniques. After the cement cured, this was trialed with a 36+4 up to a +12 head. The +12 head and neck demonstrate the best stability and leg lengths. A final size, 36+12 cobalt chrome head was then placed. Hip was reduced, taken through range of motion, found to be stable, found to have equal leg lengths. The wound was thoroughly irrigated with normal saline. A gram of vancomycin was placed deep in the joint. The capsule and piriformis repaired with 0 FiberWire. Fascia was closed with 0 Vicryl. Skin was closed with 2-0 Vicryl, skin staple and a PANCHO dressing was applied. The patient tolerated this procedure well and went to the recovery room under the care of Anesthesia postoperatively. Familia Schuster MD [facility] [address] [place] [address] OPERATIVE REPORT Name: THEODORA RUBIO Room #: 447-P [facility] IN M.R.#: [id number] Admission: 07/04/20 Attend Phys: Dony Perez MD Discharge: 07/11/20 Date of : 35 Report #: [id number] [facility] <ELECTRONICALLY SIGNED> By: Familia Schuster MD 07/16/20 [id number] Familia Schuster MD /nt
== END 2020-07-11 11:47 | DRG 467 ==
LOC: ER 16:28 → EROBS 20:03 → 4S 20:03
PROVIDERS: Nurse Practitioner; Orthopaedic Surgery; ADMIT Surgery; ATTEND Surgery
DX: S72.141A Displaced intertrochanteric fracture of right femur, initial encounter for closed fracture (principal); M97.01XA Periprosthetic fracture around internal prosthetic right hip joint, initial encounter; I48.21 Permanent atrial fibrillation; E78.5 Hyperlipidemia, unspecified; I50.9 Heart failure, unspecified; Z96.653 Presence of artificial knee joint, bilateral; I25.10 Atherosclerotic heart disease of native coronary artery without angina pectoris; I25.5 Ischemic cardiomyopathy; I65.21 Occlusion and stenosis of right carotid artery; D64.9 Anemia, unspecified; I11.0 Hypertensive heart disease with heart failure; Z20.822 Contact with and (suspected) exposure to COVID-19; Z90.49 Acquired absence of other specified parts of digestive tract; Z95.1 Presence of aortocoronary bypass graft; Z88.8 Allergy status to other drugs, medicaments and biological substances; Z59.0 Homelessness; Z95.0 Presence of cardiac pacemaker; Z79.01 Long term (current) use of anticoagulants; W18.39XA Other fall on same level, initial encounter; Y93.89 Activity, other specified; Y92.89 Other specified places as the place of occurrence of the external cause; Y99.8 Other external cause status
CPT/HCPCS: 10195; 50010; 50101; 50382; 50414; 50915; 51057; 51130; 51225; 51226; 51412; 53000; 53078; 56460; 56524; 56528; 56530; 57095; 57103; 57115; 58135; 58137; 58138; 58763; 58799; 58800; 62110; 62900; 70005

== ENCOUNTER → 2020-07-25 | Outpatient (CLI) | payer OTHER ==
[~2020-07-25] MED LIST changes: +COLACE100 MG PO; +HYDROCODON-ACE1 EAC7 PO; +MIRALAX17 GM PO
== END ==
LOC: SJCVC 13:51
PROVIDERS: ATTEND Internal Medicine Cardiovascular Disease
DX: R94.31 Abnormal electrocardiogram [ECG] [EKG] (principal); I45.2 Bifascicular block; I25.5 Ischemic cardiomyopathy; I25.10 Atherosclerotic heart disease of native coronary artery without angina pectoris; I11.0 Hypertensive heart disease with heart failure; I50.22 Chronic systolic (congestive) heart failure; I48.19 Other persistent atrial fibrillation; E78.5 Hyperlipidemia, unspecified; M19.90 Unspecified osteoarthritis, unspecified site; Z95.1 Presence of aortocoronary bypass graft; Z95.810 Presence of automatic (implantable) cardiac defibrillator; Z88.8 Allergy status to other drugs, medicaments and biological substances; Z79.899 Other long term (current) drug therapy

== ENCOUNTER 2020-08-03 09:53 | Observation (INO) | payer OTHER ==
[~2020-08-03] VITALS: Ht 188 cm; Wt 100.2 kg
--- NOTE | ~2020-08-03 | O ---
[facility] [place] [address] OPERATIVE REPORT Name: THEODORA RUBIO Room #: 440-P [facility] Ana Solorzano#: [id number] Admission: 08/03/20 Attend Phys: Familia Schuster MD Discharge: Date of : 35 Report #: [id number] THIS REPORT FOR: cc: Brown Hsu MD, Steven E. MD Abraham, Scott M. MD ~ DOC #: [id number] Familia Schuster MD DATE OF SERVICE: 08/03/2020 PREOPERATIVE DIAGNOSIS: Right hip postoperative hematoma. POSTOPERATIVE DIAGNOSIS: Right hip postoperative hematoma. PROCEDURE: Irrigation and debridement with evacuation, right hip hematoma. SURGEON: Familia Schuster MD ANESTHESIA: General. FINDINGS: Large amount of coagulated hematoma blood with no gross purulence. SPECIMENS: Cultures were sent x2. ESTIMATED BLOOD LOSS: 25 mL CONDITION UPON LEAVING THE OR: Stable. INDICATIONS FOR PROCEDURE: The patient is an 85-year-old gentleman who is about 4 weeks out from a revision right hip arthroplasty for a periprosthetic femur fracture. He has been on Eliquis secondary to atrial fibrillation. He has developed a postoperative hematoma in his hip. He has had a slow bloody drainage from his incision and after discussion with him and his daughter, they elected for I and D of the right hip hematoma. DESCRIPTION OF PROCEDURE: Risks, benefits, alternatives, complications were discussed in detail with the patient including but not limited to risk of anesthesia, risk of damage to nerves, arteries, blood vessels, risk for infection, bleeding, risk for continued hip pain, and need for reoperation. Informed consent was obtained from the patient. The right hip was appropriately marked in the preoperative holding area. IV Ancef was given for preoperative antibiotics. He was brought to the operating room and placed in supine position on the operating table. LMA anesthesia was induced without complication. He was then placed in the left lateral decubitus position with the right hip uppermost. Right hip and lower extremity were prepped and draped in normal sterile fashion. Timeout was performed properly identifying the patient and [facility] [address] [place] [address] OPERATIVE REPORT Name: THEODORA RUBIO Room #: 440-P [facility] M.R.#: [id number] Admission: 08/03/20 Attend Phys: Familia Schuster MD Discharge: Date of : 35 Report #: [id number] procedure as well as instrumentation. All in the operating room agreement. The previous incision was then opened with a 10 blade. Once getting through the skin and adipose tissue, there was a large superficial hematoma above the fascia. This was scooped out and suctioned out. No gross purulence was noted. Cultures of this area were taken and sent x2. The fascial closure was intact and this was not opened up. The potential space was then thoroughly irrigated with normal saline. A deep drain was placed. Skin was closed with ___ 2-0 nylon and a PANCHO dressing was applied. The patient tolerated this procedure well and went to recovery room under care of anesthesia postoperatively. MD LALITA Roland/FRANCESCA By: [id number] Familia Schuster MD /nt
[2020-08-03 11:02] LABS: HEMATOCRIT 32.9 % (42.0-52.0); HEMOGLOBIN 10.5 gm/dL (14.0-18.0); MCH 30.1 pg (26.0-34.0); MCHC 31.9 g/dL (28.0-37.0); MCV 94.4 fL (80.0-100.0); RBC 3.48 mil/uL (4.50-6.00); RDW 16.4 % (10.5-14.5); WBC 6.4 thou/uL (4.0-11.0)
[2020-08-03 11:20] LABS: CREATININE 0.9 mg/dL (0.7-1.3); POTASSIUM 4.3 mmol/L (3.5-5.1)
[2020-08-03 12:00] VITALS: BP 139/79
[2020-08-03 19:20] VITALS: BP 113/68
[2020-08-03 23:55] VITALS: BP 120/68
--- NOTE | 2020-08-04 02:53 | NUR ---
ASSESSED AT START OF SHIFT PT A&0X4 SANTO DOMINGO. IV INTACT AND FLUIDS INFUSING. RATES PAIN 5/10 MANAGED BY PO MEDICATION. PANCHO DRESSING HEMOVAC IN PLACE. 25CC EMPTIED OUT AT START OF SHIFT. ICE PACK IN PLACE. 2+ EDEMA NOTED ON RLE ELEVATED LEG. SCD'S IN PLACE. PT DENIES N/V. URINAL AT BEDSIDE WILL CONT TO MONITOR.
[2020-08-04 04:30] VITALS: BP 135/81
--- NOTE | 2020-08-04 07:25 | NUR ---
This RN received report from norm in PACU and patient arrived to unit at 1500 to room 440. Patient alert and orinted x4, on room air, ice pack applied to right hip, dressing was dry/clean/intact, vital stable, and afbreile. Call light with in reach, bed alarm on, and will continue to monitor.
[2020-08-04 07:35] VITALS: BP 143/85
--- NOTE | 2020-08-04 09:40 | NUR ---
Assumed care of pt at 0700. Pt a&ox4. Dressing intact. Hemovac drain removed. IVF infusing. Hard of hearing. SBA with cane. Call light within reach. Fal precautions in place. Will continue to monitor.
[2020-08-04] MEDS ORDERED: KEFLEX250 MG PO (10:24)
[2020-08-04] MEDS ORDERED: NORCO5 PO (10:26)
[2020-08-04] MEDS ORDERED: CEPHALEXIN500 MG (10:48)
[2020-08-04] MEDS ORDERED: CEPHALEXIN500 MG PO (10:50)
[2020-08-04 11:10] VITALS: BP 143/85
== END 2020-08-04 13:12 | disposition home or self-care (01) ==
LOC: OR 09:53 → 4S 15:15
PROVIDERS: Anesthesiology; ADMIT Orthopaedic Surgery; ATTEND Orthopaedic Surgery
DX: M96.840 Postprocedural hematoma of a musculoskeletal structure following a musculoskeletal system procedure (principal); I48.91 Unspecified atrial fibrillation; I10 Essential (primary) hypertension; E78.5 Hyperlipidemia, unspecified; I25.5 Ischemic cardiomyopathy; Z96.642 Presence of left artificial hip joint
CPT/HCPCS: 50010; 50101; 50382; 50414; 53078; 56525; 56528; 57095; 57103; 57116; 70005

== ENCOUNTER → 2020-10-09 | Outpatient (CLI) | payer OTHER ==
[~2020-10-09] MED LIST changes: +CEPHALEXIN500 MG; +CEPHALEXIN500 MG PO; +KEFLEX250 MG PO; +NORCO5 PO
== END ==
LOC: SJCVC 08:57
PROVIDERS: ATTEND Internal Medicine Cardiovascular Disease
DX: R94.31 Abnormal electrocardiogram [ECG] [EKG] (principal); I45.2 Bifascicular block; I48.19 Other persistent atrial fibrillation; I25.10 Atherosclerotic heart disease of native coronary artery without angina pectoris; E78.5 Hyperlipidemia, unspecified; M19.90 Unspecified osteoarthritis, unspecified site; Z72.89 Other problems related to lifestyle; Z95.810 Presence of automatic (implantable) cardiac defibrillator; Z79.82 Long term (current) use of aspirin; Z79.899 Other long term (current) drug therapy; Z95.1 Presence of aortocoronary bypass graft; Z88.6 Allergy status to analgesic agent; Z88.8 Allergy status to other drugs, medicaments and biological substances